=== PATIENT | female | born 1990 | race American Indian/Alaskan Native ===

== ENCOUNTER 2018-01-13 15:29 | Emergency (ER) | payer BC ==
--- NOTE | 2018-01-13 16:19 | Emergency Department Report ---
ED General Adult HPI - General Chief complaint: Hypoglycemia Stated complaint: LOW BLOOD SUGAR Time Seen by Provider: 01/13/18 16:09 Source: patient, EMS Mode of arrival: Stretcher Limitations: No Limitations - History of Present Illness Initial comments: Patient is 27-year-old female history of type 1 diabetes brought to the ER for evaluation of hypoglycemia. Patient stated that she took her insulin and she did not eat after that. Patient is taking NovoLog 5 mg before meals and 10 mg of Lantus at night. Patient denied any chest pain, abdominal pain, nausea or vomiting. No urinary symptoms. No cough or fever. Patient is currently taking a meal 3 in no acute distress. - Related Data Previous Rx's Medication Instructions Recorded Last Taken Type Hydrochlorothiazide [HCTZ] 25 mg PO QDAY #30 tablet 01/14/18 Unknown Rx amLODIPine [Norvasc] 5 mg PO DAILY #30 tab 01/14/18 Unknown Rx Allergies Allergy/AdvReac Type Severity Reaction Status Date / Time amoxicillin Allergy Swelling Verified 01/13/18 15:57 latex Allergy Swelling Verified 01/13/18 15:57 ED Review of Systems ROS: Stated complaint: LOW BLOOD SUGAR Other details as noted in HPI Comment: All other systems reviewed and negative Constitutional: denies: chills, fever ENT: denies: throat pain Cardiovascular: denies: chest pain Gastrointestinal: denies: abdominal pain, nausea, vomiting, diarrhea, constipation, hematemesis, melena, hematochezia Genitourinary: denies: urgency Neurological: denies: headache, weakness, numbness, paresthesias ED Past Medical Hx - Past Medical History Hx Diabetes: Yes (type 1) - Social History Smoking Status: Never Smoker Substance Use Type: None - Medications Home Medications: Home Medications Medication Instructions Recorded Confirmed Last Taken Type Hydrochlorothiazide [HCTZ] 25 mg PO QDAY #30 tablet 01/14/18 Unknown Rx amLODIPine [Norvasc] 5 mg PO DAILY #30 tab 01/14/18 Unknown Rx ED Physical Exam - General Limitations: No Limitations General appearance: alert, in no apparent distress - Head Head exam: Present: atraumatic, normocephalic, normal inspection - Eye Eye exam: Present: normal appearance - ENT ENT exam: Present: normal exam, normal orophraynx, mucous membranes moist - Respiratory Respiratory exam: Present: normal lung sounds bilaterally. Absent: respiratory distress, wheezes, rales, rhonchi, stridor, accessory muscle use, decreased breath sounds, prolonged expiratory - Cardiovascular Cardiovascular Exam: Present: regular rate, normal rhythm, normal heart sounds - GI/Abdominal GI/Abdominal exam: Present: soft, normal bowel sounds. Absent: distended, tenderness, guarding, rebound, rigid, organomegaly, mass, bruit, pulsatile mass , hernia - Extremities Exam Extremities exam: Present: normal inspection, full ROM, normal capillary refill - Back Exam Back exam: Present: normal inspection, full ROM. Absent: tenderness, CVA tenderness (R), CVA tenderness (L), muscle spasm, paraspinal tenderness, vertebral tenderness, rash noted - Neurological Exam Neurological exam: Present: alert, oriented X3, CN II-XII intact, normal gait - Skin Skin exam: Present: warm, intact, normal color ED Course Vital Signs 01/13/18 01/13/18 01/13/18 15:57 16:14 16:54 Temperature 97.4 F L Pulse Rate 97 H 103 H Respiratory 16 18 22 Rate Blood Pressure 135/104 Blood Pressure [Left] O2 Sat by Pulse 100 98 100 Oximetry 01/13/18 01/13/18 01/13/18 17:00 17:15 17:30 Temperature Pulse Rate 104 H 103 H 103 H Respiratory 21 20 23 Rate Blood Pressure 156/114 157/114 154/113 Blood Pressure [Left] O2 Sat by Pulse 100 99 99 Oximetry 01/13/18 01/13/18 01/13/18 17:45 18:00 18:15 Temperature Pulse Rate 96 H 99 H 101 H Respiratory 17 15 20 Rate Blood Pressure 130/101 134/101 148/105 Blood Pressure [Left] O2 Sat by Pulse 99 99 99 Oximetry 01/13/18 01/13/18 01/13/18 18:30 18:45 19:00 Temperature Pulse Rate 99 H 102 H 100 H Respiratory 15 17 19 Rate Blood Pressure 148/110 149/110 150/114 Blood Pressure [Left] O2 Sat by Pulse 100 99 100 Oximetry 01/13/18 01/13/18 01/13/18 19:15 19:32 20:46 Temperature Pulse Rate 98 H 96 H 110 H Respiratory 18 16 Rate Blood Pressure 150/112 Blood Pressure 150/112 190/140 [Left] O2 Sat by Pulse 100 96 Oximetry 01/13/18 01/13/18 01/13/18 20:50 21:54 23:15 Temperature Pulse Rate 110 H 110 H 107 H Respiratory 16 16 Rate Blood Pressure 190/140 Blood Pressure 190/143 184/128 [Left] O2 Sat by Pulse 96 95 Oximetry 01/13/18 01/14/18 23:52 00:34 Temperature Pulse Rate 110 H 84 Respiratory 16 Rate Blood Pressure 187/137 Blood Pressure 142/104 [Left] O2 Sat by Pulse 96 Oximetry ED Medical Decision Making - Lab Data Result diagrams: 01/13/18 16:23 01/13/18 16:23 - Medical Decision Making Patient was sugar is stable. Patient has a persistent elevated blood pressure. She stated that she never had any history of high blood pressure before. Patient received clonidine and labetalol in the ER with good response. I strongly advised the patient to follow up with her primary care physician in the next 2-3 days. Critical care attestation.: If time is entered above; I have spent that time in minutes in the direct care of this critically ill patient, excluding procedure time. ED Disposition Clinical Impression: Hypoglycemia, Malignant hypertension Disposition: DC-01 TO HOME OR SELFCARE Is pt being admited?: No Condition: Stable Instructions: Diabetic Hypoglycemia (ED), Hypertension (ED) Prescriptions: amLODIPine [Norvasc] 5 mg PO DAILY #30 tab Hydrochlorothiazide [HCTZ] 25 mg PO QDAY #30 tablet Referrals: GILBERT NUNEZ [Other] - 3-5 Days
[2018-01-13 16:55] LABS: Basophils % (Auto) 0.4 % (0.0-1.8); Eosinophils # (Auto) 0.1 K/mm3 (0.0-0.4); Hematocrit 31.3 % (30.3-42.9); Hemoglobin 10.6 gm/dl (10.1-14.3); Lymphocytes # (Auto) 1.5 K/mm3 (1.2-5.4); Lymphocytes % (Auto) 20.8 % (13.4-35.0); Mean Corpuscular HGB Conc 34 % (30-34); Mean Corpuscular Hemoglobin 31 pg (28-32); Mean Corpuscular Volume 91 fl (79-97); Monocytes # (Auto) 0.7 K/mm3 (0.0-0.8); Monocytes % (Auto) 9.9 % (0.0-7.3); Platelet Count 345 K/mm3 (140-440); Red Blood Count 3.44 M/mm3 (3.65-5.03); Red Cell Distribution Width 16.6 % (13.2-15.2)
[2018-01-13 16:58] LABS: BUN/Creatinine Ratio 30; Blood Urea Nitrogen 12 mg/dL (7-17); Calcium 8.9 mg/dL (8.4-10.2); Hemolysis Index 4
[2018-01-13 20:06] LABS: Amorphous Crystals,Urine Few; Bacteria,Urine 4+ /HPF (Negative); Bilirubin,Urine NEG (Negative); Blood,Urine MOD (Negative); Color,Urine Yellow (Yellow); Mucus,Urine FEW /HPF; Protein,Urine <15 mg/dL mg/dL (Negative); Urobilinogen,Urine < 2.0 mg/dL (<2.0)
[2018-01-13] MEDS ORDERED: CATAPRES PO ONE (20:41)
[2018-01-13] MEDS ORDERED: NORMODYNE IV ONE ×2 (23:43→23:50)
[2018-01-14 00:37] VITALS: BP 142/104
== END 2018-01-14 01:11 | disposition home or self-care (01) ==
LOC: ED 15:29
DX: E10.649 Type 1 diabetes mellitus with hypoglycemia without coma (principal); I10 Essential (primary) hypertension; Z79.4 Long term (current) use of insulin; Z88.1 Allergy status to other antibiotic agents; Z91.040 Latex allergy status
CPT/HCPCS: 36415; 80048; 81001; 82962; 84703; 85025; 96374; 99284